=== PATIENT | male | born 1950 | race Caucasian/White ===

== ENCOUNTER → 2024-03-05 13:44 | Outpatient (REF) | payer BC, SELFPAY | LOC: RAD 13:44 | PROVIDERS: ATTENDING PHYSICIAN Otolaryngology; FAMILY PHYSICIAN Nurse Practitioner | DX: R13.14 Dysphagia, pharyngoesophageal phase (principal); R05.1 Acute cough | CPT/HCPCS: 70360; 71046 ==

== ENCOUNTER → 2024-08-11 10:06 | Outpatient (REF) | payer BC, SELFPAY | LOC: RAD 10:06 | PROVIDERS: ATTENDING PHYSICIAN Otolaryngology; FAMILY PHYSICIAN Nurse Practitioner | DX: R09.82 Postnasal drip (principal) | CPT/HCPCS: 70486 ==

== ENCOUNTER → 2024-09-18 06:30 | Outpatient (REF) | payer BC, SELFPAY | LOC: RAD 06:30 | PROVIDERS: ATTENDING PHYSICIAN Nurse Practitioner | DX: Z00.01 Encounter for general adult medical examination with abnormal findings (principal); Z87.891 Personal history of nicotine dependence; R79.89 Other specified abnormal findings of blood chemistry | CPT/HCPCS: 76700; 76770 ==